=== PATIENT | male | born 1940 | race Hispanic/Latino ===

== ENCOUNTER → 2016-07-04 | Outpatient (CLI) | payer MEDICARE, BC | END | disposition home or self-care (01) | LOC: GMAL 11:15 | PROVIDERS: ATTEND Family Medicine | DX: E55.9 Vitamin D deficiency, unspecified (principal) ==

== ENCOUNTER → 2016-07-10 | Outpatient (CLI) | payer MEDICARE, BC ==
--- NOTE | 2016-07-10 10:47 | CT ---
EXAM DESCRIPTION: Abdoment/Pelvis w/o Contrast CLINICAL HISTORY: 75 years,Male,ABD PAIN COMPARISON: October 31, 2014 TECHNIQUE: Multiple axial helical tomographic images were obtained of the abdomen and pelvis with out IV or oral contrast and then reconstructed sagittal coronal plane FINDINGS: The unenhanced liver is unremarkable. The spleen is unremarkable. There is a small splenule near the anterior tip. The Pancreas is unremarkable. The adrenal glands are unremarkable. There are no stones seen in the urinary collection system. The kidneys on the left demonstrate. 3.1 cm simple cyst stable since April 2011 The gallbladder is unremarkable. No free air free fluid masses or adenopathy. The included bowel numerous diverticuli in the sigmoid and descending colon The lung bases demonstrate a small nodule lateral right anterior lung field measuring 4 mm. This is stable since at least May 09, 2011. The surrounding soft tissues are unremarkable. The bony elements age appropriate . Mild cardiomegaly with pacer leads partially occluded exam IMPRESSION: No acute findings. There is a's simple cyst left kidney, a small benign-appearing stable nodule in anterior right lung base, and numerous uncomplicated diverticuli of the descending and sigmoid colon and no significant changes. Electronically signed by: Stuart Lofton MD 07/10/2016 10:47 AM CDT
== END | disposition home or self-care (01) ==
LOC: CT 07:06
PROVIDERS: ATTEND Family Medicine
DX: R10.84 Generalized abdominal pain (principal)

== ENCOUNTER → 2016-07-12 | Outpatient (CLI) | payer MEDICARE | END | disposition home or self-care (01) | LOC: LAB.O 16:54 | PROVIDERS: ATTEND Family Medicine | DX: R94.5 Abnormal results of liver function studies (principal); D53.9 Nutritional anemia, unspecified ==

== ENCOUNTER → 2016-07-19 | Outpatient (CLI) | payer MEDICARE, BC ==
--- NOTE | 2016-07-19 11:56 | US ---
EXAM DESCRIPTION: Liver CLINICAL HISTORY: 75 years,Male,RUQ PAIN COMPARISON: None TECHNIQUE: Multiple real-time sonographic images were obtained of the right upper quadrant. FINDINGS: The liver demonstrates normal echotexture. No masses. No cysts. It measures 17.8 cm in craniocaudal length. Gallbladder demonstrates anechoic lumen. There is no intrahepatic biliary ductal dilatation. The gallbladder wall thickness is unremarkable. No pericholecystic fluid. The common bile duct measures 2.5 mm in diameter. Right kidney not demonstrated. The pancreas visualized portions of the head and body are not seen well. No free fluid in the right upper quadrant. IMPRESSION: Unremarkable ultrasound of the right upper quadrant. Electronically signed by: Stuart Lofton MD 07/19/2016 11:55 AM CDT
== END ==
LOC: US 07:38
PROVIDERS: ATTEND Family Medicine
DX: R10.84 Generalized abdominal pain (principal); R94.5 Abnormal results of liver function studies

== ENCOUNTER → 2016-07-25 | Outpatient (CLI) | payer MEDICARE | LOC: LAB.O 16:07 | PROVIDERS: ATTEND Family Medicine | DX: B18.2 Chronic viral hepatitis C (principal) ==

== ENCOUNTER → 2016-08-29 | Outpatient (CLI) | payer MEDICARE | END | disposition home or self-care (01) | LOC: LAB.O 13:59 | PROVIDERS: ATTEND Internal Medicine Gastroenterology | DX: B18.2 Chronic viral hepatitis C (principal) ==

== ENCOUNTER → 2016-10-04 | Outpatient (CLI) | payer MEDICARE ==
--- NOTE | 2016-10-04 18:33 | CT ---
PROCEDURE: Head HISTORY: DIZZINESS. R42 Indication: Same as above Comparison: 07/11/2009. Technique: CT of the head was done without intravenous contrast was done in axial plane only This exam was performed according to our departmental dose-optimization program, which includes automated exposure control, adjustment of the mA and/or KV according to the patient's size and/or use of iterative reconstruction technique. FINDINGS: There is no intracranial hemorrhage, midline shift mass effect or acute focal infarct. There is mild prominence of the sylvian fissures and the cortical sulci reflecting age related volume loss. There is minimal periventricular and deep white matter low attenuation, most likely related to small vessel white matter ischemic disease. Intracranial vascular calcifications are seen. If clinical concern exists regarding an acute ischemic/vascular pathology being responsible for patient's symptomatology, an MRI of the brain is more sensitive than the current study, in ruling out such a possibility. There is good jimenez/white matter differentiation. The ventricular system is normal. The mastoid air cells are unremarkable . The paranasal sinuses are unremarkable . There is no visualization of acute fractures involving the calvarium or the skull base. IMPRESSION: There is no acute intracranial abnormality Electronically signed by: Ryan Jung MD 10/04/2016 6:33 PM CDT Workstation: [id number]
== END | disposition home or self-care (01) ==
LOC: LAB.O 17:54
PROVIDERS: ATTEND Nurse Practitioner Family
DX: R42 Dizziness and giddiness (principal)

== ENCOUNTER → 2016-11-14 | Outpatient (CLI) | payer MEDICARE | END | disposition home or self-care (01) | LOC: LAB.O 11:37 | PROVIDERS: ATTEND Internal Medicine Gastroenterology | DX: B18.2 Chronic viral hepatitis C (principal) ==

== ENCOUNTER → 2016-11-28 | Outpatient (CLI) | payer MEDICARE | END | disposition home or self-care (01) | LOC: LAB.O 16:53 | PROVIDERS: ATTEND Internal Medicine Gastroenterology | DX: B18.2 Chronic viral hepatitis C (principal) ==

== ENCOUNTER → 2016-12-26 | Outpatient (CLI) | payer MEDICARE | END | disposition home or self-care (01) | LOC: LAB.O 16:57 | PROVIDERS: ATTEND Internal Medicine Gastroenterology | DX: B18.2 Chronic viral hepatitis C (principal) ==

== ENCOUNTER → 2017-01-23 | Outpatient (CLI) | payer MEDICARE | END | disposition home or self-care (01) | LOC: LAB.O 17:14 | PROVIDERS: ATTEND Internal Medicine Gastroenterology | DX: B18.2 Chronic viral hepatitis C (principal) ==

== ENCOUNTER → 2017-02-06 | Outpatient (CLI) | payer MEDICARE | END | disposition home or self-care (01) | LOC: GMAL 10:27 | PROVIDERS: ATTEND Family Medicine | DX: D51.3 Other dietary vitamin B12 deficiency anemia (principal); Z12.5 Encounter for screening for malignant neoplasm of prostate | CPT/HCPCS: 82607; G0103 ==

== ENCOUNTER → 2017-05-09 | Outpatient (CLI) | payer MEDICARE ==
--- NOTE | 2017-05-12 00:14 | US ---
Procedure: US RETROPERITONEUM Exam Date: 05/09/2017 Ordering Provider: Gemini Martinez Clinical Indication: Flank pain Comparison: 07/10/2016 CT abdomen pelvis Technique: Real-time ultrasonography was obtained over the kidneys and brewery representative images were recorded. Findings: The right kidney measures 9.0 x 4.9 x 6.0 cm . There is normal renal cortical thickness and echogenicity. There are no masses, calculi, or hydronephrosis. The left kidney measures 10.9 x 6.3 x 5.7 cm . There is normal renal cortical thickness and echogenicity. There are no masses, calculi, or hydronephrosis. There is a 3.6 cm cyst. The visualized aorta is within normal limits. Impression: 1. Left renal cyst, otherwise unremarkable exam. Electronically signed by: David Will MD 05/12/2017 12:13 AM WELLNESS COORDINATOR
== END ==
LOC: US 08:15
PROVIDERS: ATTEND Nurse Practitioner Family
DX: N23 Unspecified renal colic (principal); N28.1 Cyst of kidney, acquired

== ENCOUNTER 2017-06-29 09:29 | Emergency (ER) | payer MEDICARE ==
--- NOTE | 2017-06-29 09:54 | ED.PDOC ---
History of Present Illness - General Chief Complaint: Abdominal Pain Stated Complaint: abdominal pain Time Seen by Provider: 06/29/17 09:51 Information Source: patient, RN notes reviewed Exam Limitations: no limitations Additional Information: 76 YEAR OLD MALE PRESENTS WITH UPPER ABDOMINAL PAIN FOR 10 DAYS AGGRAVATED BY WATER AND TODAY HE HAD ONE EPISODE OF DARK STOOLS HE HAD NO ASSOCIATED DIZZINESS OR SYNCOPE HE HAS HAD EGD IN THE PAST BY DR DORMAN DIAGNOSED WITH GERD HE DENIES ALCOHOL ABUSE NO NSAIDS NO STERIODS NO PEPTOBISMOL INTAKE - History of Present Illness Abdominal Pain Onset Location: epigastric Pain Radiation: no radiation Quality: moderate Timing/Duration: 1 week Improving Factors: nothing Worsening Factors: eating Associated Symptoms: heartburn Past Medical History (General) - Patient Medical History Hx Seizures: No Hx Stroke: No Hx Dementia: No Hx Asthma: No Hx of COPD: No Hx Cardiac Disorders: Yes - Pacemaker Hx Congestive Heart Failure: Yes Hx Pacemaker: Yes Hx Hypertension: Yes Hx Thyroid Disease: No Hx Diabetes: Yes Hx Gastroesophageal Reflux: No Hx Renal Disease: No Hx Cancer: No Hx of HIV: No Hx Hepatitis C: No Hx MRSA: No Surgical History: other - Vaccination History Hx Tetanus, Diphtheria Vaccination: Yes - 2008 Hx Influenza Vaccination: Yes - 2016 Hx Pneumococcal Vaccination: Yes - 2015 - Social History Hx Tobacco Use: No Hx Alcohol Use: No Hx Substance Use: No Hx Substance Use Treatment: No Hx Depression: No Hx Physical Abuse: No Hx Emotional Abuse: No Hx Suspected Abuse: No Family Medical History - Family History Mother Family History: No Known Living Status: Cause of : cancer Hx Family Hypertension: Yes Hx Cardiac Disease: Yes - [place] Hx Family Cancer: Yes - colon Physical Exam - Physical Exam General Appearance: Alert Eyes, Ears, Nose, Throat Exam: PERRL/EOMI, normal ENT inspection, TMs normal, pharynx normal Neck: non-tender, full range of motion, supple Respiratory: chest non-tender, lungs clear, normal breath sounds, no respiratory distress, no accessory muscle use Cardiovascular/Chest: normal peripheral pulses, regular rate, rhythm, no edema, no gallop, no JVD, no murmur Gastrointestinal/Abdominal: normal bowel sounds, soft, no organomegaly, no pulsatile mass, tenderness Back Exam: normal inspection, no CVA tenderness 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8 Chloride 105 Carbon Dioxide 23 Anion Gap 14.8 BUN 14 Creatinine 1.12 BUN/Creatinine Ratio 12.5 Random Glucose 142 H Serum Osmolality 280.4 Calcium 9.4 Total Bilirubin 1.3 H AST 29 ALT 22 Alkaline Phosphatase 43 Serum Total Protein 6.9 Albumin 4.0 Globulin 2.9 Albumin/Globulin Ratio 1.4 Departure - Departure Clinical Impression: Gastroesophageal reflux disease, History of melena Time of Disposition: 11:22 Disposition: Discharge to Home or Self Care Condition: Good Departure Forms: ED Discharge - Pt. Copy, Patient Portal Self Enrollment Instructions: DI for Abdominal Pain-Adult Activity: increase activity as tolerated Referrals: Stuart Gooden III, MD [Primary Care Provider] - 1-2 Weeks Prescriptions: Pantoprazole Tablet [Protonix] 40 mg PO ACBK #30 tab Home Medications: Ambulatory Orders Aspirin [Baby Aspirin] 81 mg PO DAILY 05/16/14 Carvedilol 12.5 mg PO BID 05/16/14 Cyanocobalamin [B-12] 1,000 mcg PO DAILY 05/16/14 Donepezil HCl [Aricept] 10 mg PO DAILY 05/16/14 Irbesartan [Avapro] 75 mg PO BID 05/16/14 Memantine HCl [Namenda] 10 mg PO BID 05/16/14 Metformin HCl 500 mg PO BID 05/16/14 Multiple Vitamins W/ Minerals [Centrum Silver] 1 tab PO DAILY 05/16/14 Pravastatin Sodium 40 mg PO DAILY 05/16/14 Spironolactone 25 mg PO DAILY 05/16/14 Tamsulosin [Flomax] 0.4 mg PO DAILY 05/16/14 Oxybutynin Chloride 5 mg PO BID 12/26/14 Pantoprazole Tablet [Protonix] 40 mg PO ACBK #30 tab 06/29/17 Comments: NO EVIDENCE OF SIGNIFICANT GI BLEED CT ABD WITHOUT CONTRAST DONE THE PATIENT HAS IODINE ALLERGY THAT IS WITHIN NORMAL LIMITS NO ACUTE FINDINGS ASYMPTOMATIC DIVERTICULA AND ENLARGED PROSTATE POSSIBLE HEPATIC CYST NOTED SINCE THE PATIENT HAS HISTORY OF GERD WILL START HIM ON PROTON PUMP INHIBITOR AND SUGGEST HE FOLLOW UP WITH PCP AND AUDIO VISUAL AIDS DIRECTOR
--- NOTE | 2017-06-29 10:53 | CT ---
Procedure: CT ABDOMEN PELVIS WITHOUT IV CONTRAST Exam Date: 06/29/2017 9:57 AM CDT Ordering Provider: Alvarado Morrow Clinical Indication: ABD PAIN Comparison: None TECHNIQUE: CT of the abdomen and pelvis WITHOUT intravenous contrast. The abdomen and pelvis were scanned utilizing a multidetector helical scanner from the diaphragm to the lesser trochanter. Coronal and sagittal reformations were obtained. This exam was performed according to our departmental dose-optimization program which includes automated exposure control, adjustment of the mA and/or kV according to patient size and/or use of iterative reconstruction technique. DISCUSSION: ABSENCE OF INTRAVENOUS CONTRAST DECREASES SENSITIVITY FOR DETECTION OF FOCAL LESIONS AND VASCULAR PATHOLOGY. LOWER THORAX: Normal. HEPATOBILIARY: Subcentimeter low-density focus in the left hepatic lobe and the periphery of the right hepatic lobe, statistically a cyst. Faint pericholecystic fluid is present. No radiopaque gallstone is present. SPLEEN: No splenomegaly. PANCREAS: No focal masses or ductal dilatation. ADRENALS: No adrenal nodules. KIDNEYS/URETERS: No hydronephrosis, stones, or solid mass lesions. Simple appearing cysts are seen in bilateral kidneys. PELVIC ORGANS/BLADDER: There is enlarged appearance of the prostate gland. Visualized bladder is unremarkable. PERITONEUM / RETROPERITONEUM: No free air or fluid. LYMPH NODES: No lymphadenopathy. VESSELS: Vascular calcifications are seen in the abdominal aorta. No aneurysmal dilatation. GI TRACT: The stomach and small bowel are unremarkable. There is extensive relatively diffuse colonic diverticulosis. No evidence of diverticulitis. BONES AND SOFT TISSUES: Multilevel degenerative changes are seen within the lumbar spine. IMPRESSION: Colonic diverticulosis without diverticulitis. Faint pericholecystic fluid. No obvious radiopaque gallstone is present. Consider further assessment with right upper quadrant ultrasound if there is high clinical concern. Other nonemergent findings, as described. Electronically signed by: Rachael Monteiro MD 06/29/2017 10:52 AM CDT
[2017-06-29 12:08] VITALS: BP 126/74; TEMP 96.9; O2SAT 97
== END 2017-06-29 11:40 | disposition home or self-care (01) ==
LOC: ER 09:29
DX: K21.9 Gastro-esophageal reflux disease without esophagitis (principal); I11.0 Hypertensive heart disease with heart failure; I50.9 Heart failure, unspecified; E11.9 Type 2 diabetes mellitus without complications; K57.90 Diverticulosis of intestine, part unspecified, without perforation or abscess without bleeding; N40.0 Benign prostatic hyperplasia without lower urinary tract symptoms; Z95.0 Presence of cardiac pacemaker; Z87.19 Personal history of other diseases of the digestive system; Z79.84 Long term (current) use of oral hypoglycemic drugs

== ENCOUNTER 2017-08-02 19:22 | Emergency (ER) | payer MEDICARE ==
--- NOTE | 2017-08-02 20:11 | RAD ---
EXAM DESCRIPTION: Chest,2 Views CLINICAL HISTORY:76 years Male, difficulty eating/swallowing Comparison: September 01, 2015 FINDINGS: Enlarged cardiac silhouette with mild vascular congestion, more prominent than prior. No focal lung consolidation. Left sided cardiac device. Atherosclerotic vascular calcifications. No pleural effusion. No pneumothorax. No acute osseous abnormality. Soft tissues are unremarkable. IMPRESSION: Enlarged cardiac silhouette with mild vascular congestion, slightly more prominent than prior. No focal lung consolidation. Electronically signed by: Rick Tesfaye MD 08/02/2017 8:10 PM CDT
[2017-08-02 21:17] VITALS: O2SAT 97
--- NOTE | 2017-08-02 21:20 | ED.PDOC ---
History of Present Illness - General Chief Complaint: GI Problem Stated Complaint: decreased appetite, Time Seen by Provider: 08/02/17 19:32 Source: patient Exam Limitations: no limitations - History of Present Illness Initial Comments: the patient is a 76-year-old male presenting to the emergency room secondary to a month of progressive symptoms. The patient reports that his appetite has been poor for the last month and he has been having early satiety but has only been worsening for the last month. At times he has been nauseated but has not thrown up. He is apparently already scheduled for an EGD with Dr. Coon in [place]. This was scheduled be done this coming Saturday. He has a known hiatal hernia on CT scan of his abdomen from last month. The patient also has a significant history of congestive heart failure and just had his pacemaker redone with Dr. Montenegro in [facility] 3 weeks ago. His installer technician is Dr. Wilcox. The patient is not having any swelling in his lungs are clear. He is however getting short of breath with as little as 10 paces of walking. His chest x-ray tonight does show some increased cardiomegaly. He is not having abdominal pain. He has been taking his medicationsregularly even in spite of his weight changes. he reports that he has gotten dizzy and almost passed out on at least 2 occasions. Timing/Duration: unsure Severity: moderate Improving Factors: rest Worsening Factors: nothing Associated Symptoms: loss of appetite, malaise, nausea/vomiting, shortness of breath, weakness Allergies/Adverse Reactions: Allergies Iodine Allergy (Verified 06/29/17 09:47) IV dye Allergy (Uncoded 09/01/15 18:02) Home Medications: Ambulatory Orders Aspirin [Baby Aspirin] 81 mg PO DAILY 05/16/14 Carvedilol 12.5 mg PO BID 05/16/14 Cyanocobalamin [B-12] 1,000 mcg PO DAILY 05/16/14 Donepezil HCl [Aricept] 10 mg PO DAILY 05/16/14 Irbesartan [Avapro] 75 mg PO BID 05/16/14 Memantine HCl [Namenda] 10 mg PO BID 05/16/14 Metformin HCl 500 mg PO BID 05/16/14 Multiple Vitamins W/ Minerals [Centrum Silver] 1 tab PO DAILY 05/16/14 Pravastatin Sodium 40 mg PO DAILY 05/16/14 Spironolactone 25 mg PO DAILY 05/16/14 Tamsulosin [Flomax] 0.4 mg PO DAILY 05/16/14 Oxybutynin Chloride 5 mg PO BID 12/26/14 Pantoprazole Tablet [Protonix] 40 mg PO ACBK #30 tab 06/29/17 Review of Systems - Review of Systems Constitutional: States: malaise, weakness EENTM: States: no symptoms reported Respiratory: States: short of breath - ith activity mainly Cardiology: States: no symptoms reported Gastrointestinal/Abdominal: States: nausea. Denies: constipation, diarrhea, vomiting Genitourinary: States: no symptoms reported Musculoskeletal: States: no symptoms reported Skin: States: no symptoms reported Neurological: States: other - izziness and generalized weakness Endocrine: States: no symptoms reported All other Systems: No Change from Baseline Past Medical History (General) - Patient Medical History Hx Seizures: No Hx Stroke: No Hx Dementia: No Hx Asthma: No Hx of COPD: No Hx Cardiac Disorders: Yes - Pacemaker Hx Congestive Heart Failure: No Hx Pacemaker: Yes Hx Hypertension: Yes Hx Thyroid Disease: No Hx Diabetes: Yes Hx Gastroesophageal Reflux: No Hx Renal Disease: No Hx Cancer: No Hx of HIV: No Hx Hepatitis C: No Hx MRSA: No Surgical History: pacemaker, other - Vaccination History Hx Tetanus, Diphtheria Vaccination: No Hx Influenza Vaccination: No Hx Pneumococcal Vaccination: Yes - 2016 - Social History Hx Tobacco Use: No Hx Alcohol Use: No Hx Substance Use: No Hx Substance Use Treatment: No Hx Depression: No Hx Physical Abuse: No Hx Emotional Abuse: No Hx Suspected Abuse: No - Triage Comment ED Triage Comment: pt reports he has ascope scheduled for next saturday. Family Medical History - Family History Mother Family History: No Known Living Status: Cause of : cancer Hx Family Hypertension: Yes Hx Cardiac Disease: Yes - [place] Hx Family Cancer: Yes - colon Physical Exam - Physical Exam General Appearance: Alert, No apparent distress Eye Exam: bilateral normal Ears, Nose, Throat: hearing grossly normal, normal ENT inspection, normal pharynx Neck: full range of motion, supple Respiratory: lungs clear, normal breath sounds, no respiratory distress, no accessory muscle use Cardiovascular/Chest: normal peripheral pulses, no edema, other - egular rate Peripheral Pulses: radial,right: 2+, radial,left: 2+, dorsalis pedis,right: 2+, dorsalis pedis,left: 2+ Gastrointestinal/Abdominal: non tender, soft Rectal Exam: deferred Back Exam: normal inspection, no CVA tenderness Extremity: normal range of motion, non-tender, no pedal edema, normal capillary refill 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, alert, normal mood/affect, oriented x 3 Skin Exam: normal color Comments: Vital Signs - 24 hr 08/02/17 08/02/17 08/02/17 19:44 19:46 19:47 Temperature 98.7 F 98.7 F 98.7 F Pulse Rate [ 80 80 80 left] Respiratory 20 20 20 Rate Blood Pressure 125/78 118/69 118/69 [left] O2 Sat by Pulse 98 Oximetry 08/02/17 08/02/17 19:50 21:05 Temperature 98.7 F 98.7 F Pulse Rate [ 81 80 left] Respiratory 20 20 Rate Blood Pressure 123/76 117/76 [left] O2 Sat by Pulse 97 Oximetry Progress - Progress Progress: 08/02/17 21:22 the patient is a 76-year-old male presenting to the emergency room secondary to progressive symptoms of early satiety as well as increasing generalized weakness and dyspnea on exertion over the last month. The patient reports a 25 pound weight loss over the last month. I'm uncertain how much of the symptoms are coming from his upper gastrointestinal tract versus his congestive heart failure. The patient is being transferred for an expedited gastrointestinal evaluation as well as further cardiac reevaluation preferably including an echocardiogram to determine if there is significant change in his cardiac function for some reason that needs further addressing. upon insistence by the patient and his family the patient will be allowed to go to [facility] by private vehicle. At this point his vital signs have been stable at rest and he is not requiring any supplemental oxygen or IV medications , so his risk for transfer in a private vehicle should be low. He is to proceed immediately to [facility] for further evaluation and treatment. He has agreed to this. - Results/Orders Results/Orders: Abnormal Lab Results 08/02/17 08/02/17 19:57 19:57 MCH 31.3 H Absolute Lymphs (auto) 0.80 L Lymphocytes % 12.6 L Monocytes % 9.6 H Anion Gap 11.1 L BUN 24 H Random Glucose 169 H B-Natriuretic Peptide 1650.0 H* 08/02/17 19:46 Vital Signs-Tilt PRN 08/02/17 20:30 EKG STAT Laboratory Results - last 24 hr 08/02/17 08/02/17 19:57 19:57 WBC 6.4 RBC 4.76 Hgb 14.9 Hct 44.4 MCV 93.2 MCH 31.3 H MCHC 33.6 RDW 13.8 Plt Count 159 MPV 8.6 Absolute Neuts (auto) 4.70 Absolute Lymphs (auto) 0.80 L Absolute Monos (auto) 0.60 Absolute Eos (auto) 0.20 Absolute Basos (auto) 0.10 Neutrophils % 73.8 Lymphocytes % 12.6 L Monocytes % 9.6 H Eosinophils % 3.0 Basophils % 1.0 Sodium 138 Potassium 4.1 Chloride 103 Carbon Dioxide 28 Anion Gap 11.1 L BUN 24 H Creatinine 1.24 BUN/Creatinine Ratio 19.4 Random Glucose 169 H Serum Osmolality 283.6 Calcium 9.0 Magnesium 1.8 Total Bilirubin 0.4 AST 38 ALT 28 Alkaline Phosphatase 89 Creatine Kinase 102 CK-MB (CK-2) 2.1 CK-MB (CK-2) % Not Reportable Troponin I 0.02 B-Natriuretic Peptide 1650.0 H* Serum Total Protein 7.1 Albumin 3.7 Globulin 3.4 Albumin/Globulin Ratio 1.1 Amylase 71 TSH 2.71 chest x-ray shows worsening cardiomegaly. EKG shows a paced rhythm at 80 bpm. Departure - Departure Clinical Impression: Abnormal weight loss, Early satiety CHF exacerbation Qualifiers: Congestive heart failure type: combined Qualified Code(s): I50.43 - Acute on chronic combined systolic (congestive) and diastolic (congestive) heart failure Disposition: Transfer to Hospital Referrals: Stuart Gooden III, MD [Primary Care Provider] - 1-2 Weeks Home Medications: Ambulatory Orders Aspirin [Baby Aspirin] 81 mg PO DAILY 05/16/14 Carvedilol 12.5 mg PO BID 05/16/14 Cyanocobalamin [B-12] 1,000 mcg PO DAILY 05/16/14 Donepezil HCl [Aricept] 10 mg PO DAILY 05/16/14 Irbesartan [Avapro] 75 mg PO BID 05/16/14 Memantine HCl [Namenda] 10 mg PO BID 05/16/14 Metformin HCl 500 mg PO BID 05/16/14 Multiple Vitamins W/ Minerals [Centrum Silver] 1 tab PO DAILY 05/16/14 Pravastatin Sodium 40 mg PO DAILY 05/16/14 Spironolactone 25 mg PO DAILY 05/16/14 Tamsulosin [Flomax] 0.4 mg PO DAILY 05/16/14 Oxybutynin Chloride 5 mg PO BID 12/26/14 Pantoprazole Tablet [Protonix] 40 mg PO ACBK #30 tab 06/29/17 Transfer to Outside Facility - Transfer Information Accepting Provider:: dr hardwick Accepting Facility: [facility] Reason for Transfer: required specialist not available
[2017-08-02 21:38] VITALS: BP 119/76; TEMP 98
== END 2017-08-02 21:38 | disposition short-term general hospital (02) ==
LOC: ER 19:22
DX: R68.81 Early satiety (principal); R63.4 Abnormal weight loss; I11.0 Hypertensive heart disease with heart failure; I50.43 Acute on chronic combined systolic (congestive) and diastolic (congestive) heart failure; E11.9 Type 2 diabetes mellitus without complications; Z95.0 Presence of cardiac pacemaker; Z79.82 Long term (current) use of aspirin; Z79.899 Other long term (current) drug therapy

== ENCOUNTER → 2017-08-21 | Outpatient (CLI) | payer MEDICARE ==
--- NOTE | 2017-08-21 15:32 | CT ---
EXAM DESCRIPTION: Chest w/o Contrast CLINICAL HISTORY: 76 years, Male, ABNORMAL CHEST X RAY COMPARISON: Recent chest x-ray August 02, 2017, CT abdomen June 29, 2017 TECHNIQUE: Thin-section noncontrast axial CT images are obtained according to our protocol. Reconstructed MPR images are created and reviewed as well. FINDINGS: Lungs: Focal consolidation is seen in the inferior lingula which could be acute or chronic. Pneumonic infiltrate is favored over a malignant process since this is triangular in shape. On the sagittal images this measures 1.5 x 3.2 cm. On the axial images, this abnormal density measures approximately 1.8 x 1.6 cm. Coronal measurement is 1.4 x 1.9 cm. This could be followed to ensure complete clearance. If patient has symptoms to suggest pneumonia, chest x-ray might be considered to see if the density could be followed with chest x-ray. Otherwise a follow-up CT to ensure resolution or stability might be considered in 3-[address] images of the lower chest as part of the CT abdomen June 29, 2017, no paracardiac density was seen at that time in the lower lingula suggesting new onset of focal atelectasis or pneumonia. No central obstructing lesion. Minimal internal air bronchograms are present. Tiny nodule in the right middle lobe measures 3 mm. Another tiny nodule more inferiorly in the right middle lobe measures [address] recommendations for follow-up below. Otherwise no worrisome pulmonary mass or nodule. Mediastinum: Lymph nodes are normal in size. Normal vascular contours. Heart size is increased with cardiac pacer in place and with no pericardial effusion. Chest wall/axilla: No mass or adenopathy. Epicardial pacer leads are seen traversing the anterior left chest wall. Lower neck/supraclavicular: No mass or adenopathy. Thyroid is small. Upper abdomen: Tiny cysts in the right and left lobes of the liver measure 5 mm and 6 mm. A third cyst in the lower right lobe behind the liver hilum measures 1.1 cm. Question mild inflammatory changes around the mid left kidney. Correlate with other studies. Small accessory splenule is present. Otherwise unremarkable upper abdominal viscera. Coronal and sagittal reformatted images confirm the findings. IMPRESSION: Focal consolidation within the inferior segment of the lingula. Follow-up is recommended in 3-6 months to ensure stability or resolution. 3 mm nodules in the right middle lobe. Follow-up as per Fleischner Society criteria-see below. Small hepatic lesions most consistent with cysts. 2017 Fleischner Society Recommendations for Multiple Solid Lung Nodules Follow-Up base on size (average of long- and short-axis diameters). Use most suspicious nodule for followup. Nodule Size <6 mm Low-Risk Patient: No routine follow-up Nodule Size <6 mm High-Risk Patient: Optional CT at 12 months This exam was performed according to our departmental dose-optimization program, which includes automated exposure control, adjustment of the mA and/or kV according to patient size and/or use of iterative reconstruction technique. Total DLP equals 675.21 mGycm. Electronically signed by: Modesto Bah MD 08/21/2017 3:30 PM CDT
== END ==
LOC: CT 11:00
PROVIDERS: ATTEND Family Medicine
DX: R91.1 Solitary pulmonary nodule (principal); R30.0 Dysuria

== ENCOUNTER → 2017-09-26 | Outpatient (CLI) | payer MEDICARE | LOC: GMAL 17:58 | PROVIDERS: ATTEND Family Medicine | DX: M79.7 Fibromyalgia (principal); R53.83 Other fatigue ==

== ENCOUNTER → 2017-11-01 | Outpatient (CLI) | payer MEDICARE | LOC: LAB.O 11:24 | PROVIDERS: ATTEND Internal Medicine Gastroenterology | DX: R10.13 Epigastric pain (principal) ==

== ENCOUNTER → 2018-03-10 | Outpatient (CLI) | payer MEDICARE | LOC: GMAL 11:48 | PROVIDERS: ATTEND Family Medicine | DX: D51.3 Other dietary vitamin B12 deficiency anemia (principal); R53.83 Other fatigue; E55.9 Vitamin D deficiency, unspecified; Z12.5 Encounter for screening for malignant neoplasm of prostate | CPT/HCPCS: 82306; 82607; 84443; G0103 ==

== ENCOUNTER → 2018-03-14 | Outpatient (CLI) | payer MEDICARE ==
--- NOTE | 2018-03-14 09:46 | CT ---
EXAM DESCRIPTION: Soft Tissue Neck w/Contrast CLINICAL HISTORY: 77 years Male, R59.0 COMPARISON: CT C-spine 10/18/2008. TECHNIQUE: Transaxial images are obtained from skull base through thoracic inlet with intravenous contrast. Sagittal and coronal reformations were provided. This exam was performed according to our departmental dose-optimization program, which includes automated exposure control, adjustment of the mA and/or kV according to patient size and/or use of iterative reconstruction technique. FINDINGS: Larynx, supraglottic, glottic, infraglottic airways: Larynx, and the entire cervical airway are unremarkable. Nasopharynx, oropharynx, parotid glands, submandibular glands and tongue: The soft tissues of the nasopharynx and oropharynx are normal. The parotid and both submandibular glands are normal. Inherent muscles of the tongue and lingual tonsils are normal. Lymph nodes: No pathologically enlarged lymph nodes are present. Thyroid: The thyroid gland appears normal. Vascular structures: Mild atherosclerosis within the visualized aortic arch. There is mild calcified atherosclerosis within the carotid bifurcations without significant stenosis. Cervical esophagus: Normal. Musculoskeletal: No acute osseous abnormality or destructive osseous process is present. Degenerative changes of the spine. Paravertebral soft tissues unremarkable. Visualized upper thorax and mediastinum: The visualized portions of the lung apices and upper mediastinum are normal. Visualized structures of the skull base: The visualized portions of the skull base, mastoid air cells, middle ear and paranasal sinuses are normal. IMPRESSION: 1. No acute CT abnormality of the neck. No pathologically enlarged lymph nodes. Electronically signed by: Balwinder Valdez MD 03/14/2018 9:45 AM INDUSTRIAL SAF[employer]Y AND HEALTH SPECIALIST
== END ==
LOC: CT 09:00
PROVIDERS: ATTEND Family Medicine
DX: R59.0 Localized enlarged lymph nodes (principal)

== ENCOUNTER → 2018-06-30 | Outpatient (CLI) | payer MEDICARE | LOC: GMATM 16:48 | PROVIDERS: ATTEND Nurse Practitioner Family | DX: R10.84 Generalized abdominal pain (principal) ==

== ENCOUNTER 2018-07-01 20:31 | Emergency (ER) | payer MEDICARE ==
[2018-07-01] MEDS ORDERED: NITROGLYCERIN 0.4 MG 25 EA TAB SL PRN (20:41)
[2018-07-01] MEDS ORDERED: SODIUM CHLORIDE 0.9% (FLUSH) 10 ML SYG IV PRN (20:41)
[2018-07-01] MEDS: ASPIRIN (CHEWABLE) 81 MG TAB PO ONE (21:06)
[2018-07-01] MEDS ORDERED: LIDOCAINE HCL 2% (MOUTH-THROAT) 15 ML UD ONE (21:06)
[2018-07-01] MEDS: ALUM & MAG HYDROX-SIMETHICONE 30 ML, LIDOCAINE VISCOUS 2% 15 ML PO ONE ×2 (21:06)
[2018-07-01] MEDS ORDERED: ALUM & MAG HYDROX-SIMETHICONE 30 ML UD ONE (21:06)
--- NOTE | 2018-07-01 21:16 | RAD ---
EXAM DESCRIPTION: Chest,1 View CLINICAL HISTORY: 77 years Male CP X 5 D COMPARISON: 08/02/2017 FINDINGS: Marked cardiac enlargement. There is central pulmonary vascular congestion and pulmonary infiltrates consistent with pulmonary edema. Infiltrates appear worse in the lower lobes. Suspect bilateral effusions. Pacemaker in place. No pneumothorax. IMPRESSION: Cardiac enlargement with central pulmonary vascular congestion and pulmonary infiltrates worse in the lung bases. Findings may reflect pulmonary edema Small bilateral effusions Electronically signed by: Joy Chan MD 07/01/2018 9:13 PM CDT
--- NOTE | 2018-07-01 22:37 | ED.PDOC ---
History of Present Illness - General Chief Complaint: GI Problem Stated Complaint: short of breath, chest discomfort Time Seen by Provider: 07/01/18 20:40 Source: patient Exam Limitations: no limitations - History of Present Illness Initial Comments: 4 D DYSPNEA W/ EXERTION AND CP. H/O GERD FOR WHICH HE TAKES DAILY NEXIUM. Timing/Duration: getting worse Severity: severe Improving Factors: immobilization Worsening Factors: movement Associated Symptoms: chest pain, shortness of breath Allergies/Adverse Reactions: Allergies Iodine Allergy (Verified 07/01/18 22:35) IV dye Allergy (Uncoded 09/01/15 18:02) Home Medications: Ambulatory Orders Aspirin [Baby Aspirin] 81 mg PO DAILY 05/16/14 Carvedilol 12.5 mg PO BID 05/16/14 Cyanocobalamin [B-12] 1,000 mcg PO DAILY 05/16/14 Donepezil HCl [Aricept] 10 mg PO DAILY 05/16/14 Irbesartan [Avapro] 75 mg PO BID 05/16/14 Memantine HCl [Namenda] 10 mg PO BID 05/16/14 Metformin HCl 500 mg PO BID 05/16/14 Multiple Vitamins W/ Minerals [Centrum Silver] 1 tab PO DAILY 05/16/14 Pravastatin Sodium 40 mg PO DAILY 05/16/14 Spironolactone 25 mg PO DAILY 05/16/14 Tamsulosin [Flomax] 0.4 mg PO DAILY 05/16/14 Oxybutynin Chloride 5 mg PO BID 12/26/14 Pantoprazole Tablet [Protonix] 40 mg PO ACBK #30 tab 06/29/17 Review of Systems - Review of Systems Constitutional: Denies: diaphoresis, fever EENTM: States: no symptoms reported Respiratory: States: short of breath. Denies: cough, wheezing Cardiology: States: chest pain. Denies: edema, palpitations Gastrointestinal/Abdominal: States: other - EPIGASTRIC PAIN. Denies: constipation, diarrhea, nausea Genitourinary: Denies: dysuria, frequency, hematuria Musculoskeletal: Denies: back pain, neck pain Skin: Denies: lesions, rash Neurological: Denies: headache, tremors, weakness Endocrine: Denies: excessive sweating, unexplained weight gain, unexplained weight loss Hematologic/Lymphatic: Denies: easy bleeding, easy bruising All other Systems: Reviewed and Negative Past Medical History (General) - Patient Medical History Hx Seizures: No Hx Stroke: No Hx Dementia: No Hx Asthma: No Hx of COPD: No Hx Cardiac Disorders: Yes - Pacemaker Hx Congestive Heart Failure: No Hx Pacemaker: Yes Hx Hypertension: Yes Hx Thyroid Disease: No Hx Diabetes: Yes Hx Gastroesophageal Reflux: Yes - diverticulitis Hx Renal Disease: No Hx Cancer: No Hx of HIV: No Hx Hepatitis C: No Hx MRSA: No Surgical History: pacemaker - Vaccination History Hx Tetanus, Diphtheria Vaccination: No Hx Influenza Vaccination: No Hx Pneumococcal Vaccination: Yes - 2016 - Social History Hx Tobacco Use: Yes - has quit Hx Alcohol Use: No Hx Substance Use: No Hx Substance Use Treatment: No Hx Depression: No Hx Physical Abuse: No Hx Emotional Abuse: No Hx Suspected Abuse: No Family Medical History - Family History Mother Family History: No Known Living Status: Cause of : cancer Hx Family Hypertension: Yes Hx Cardiac Disease: Yes - [place] Hx Family Cancer: Yes - colon Physical Exam - Physical Exam General Appearance: Alert, No apparent distress Eye Exam: bilateral normal Ears, Nose, Throat: hearing grossly normal, normal ENT inspection Neck: non-tender, full range of motion, supple, other - MILD JVD. NO BRUIT. Respiratory: chest non-tender, lungs clear - NO CRACKLES, normal breath sounds, no respiratory distress, no accessory muscle use Cardiovascular/Chest: normal peripheral pulses, regular rate, rhythm, no murmur Peripheral Pulses: radial,right: 1+, radial,left: 1+ Gastrointestinal/Abdominal: normal bowel sounds, soft, no organomegaly, no pulsatile mass, tenderness - MILDLY TTP IN EPIGASTRIC/XIPHOID PROCESS. Rectal Exam: deferred Back Exam: no CVA tenderness, no vertebral tenderness Extremity: non-tender, normal inspection, no pedal edema, no calf tenderness Neurologic: no motor/sensory deficits, alert, normal mood/affect Skin Exam: normal color, warm/dry Lymphatic: no adenopathy Progress - Progress Progress: 07/01/18 22:46 GI COCKTAIL DID NOT HELP THE EPIGASTRIC DISCOMFORT. BNP 2690 CXR CARDIOMEGALY, PULM EDEMA (CHF), PLEURAL EFFUSIONS. EKG WIDE QRS FROM PACEMAKER. NO ACUTE ST CHANGES. CARD ENZ NEG. CBC NEB. CMP Na 133, cR ELEV AT 2.09 (BASELINE 1.09 - 1.24). BUN 31. COAG INR 1.29 WITH CHF AND ARF, PT NEEDS ADMISSION. PT'S EXCHANGE ARCHITECT, DR LOVETT, IS IN [place] WITH HIS AND DAUGHTER. HE REQUESTS TO GO THERE. I SPOKE WITH DR. CHANCE, WHO ACCEPTED ADMISSION TO THE CARDIAC FLOOR. THANK YOU, AND URS, FOR ACCEPTING FURTHER CARE OF OUR PATIENT. Departure - Departure Clinical Impression: Elevated brain natriuretic peptide (BNP) level, CAPONE (dyspnea on exertion), Cardiomegaly, Pleural effusion, Hyponatremia CHF (congestive heart failure) Qualifiers: Heart failure type: unspecified Heart failure chronicity: acute Qualified Code(s): I50.9 - Heart failure, unspecified Chest pain Qualifiers: Chest pain type: unspecified Qualified Code(s): R07.9 - Chest pain, unspecified Pulmonary edema Qualifiers: Chronicity: acute Qualified Code(s): J81.0 - Acute pulmonary edema Acute renal failure (ARF) Qualifiers: Acute renal failure type: unspecified Qualified Code(s): N17.9 - Acute kidney failure, unspecified Disposition: Transfer to Hospital Condition: Fair Departure Forms: ED Discharge - Pt. Copy, Patient Portal Self Enrollment Instructions: Heart Failure, Adult (DC) Referrals: Stuart Gooden III, MD [Primary Care Provider] - 1-2 Weeks Home Medications: Ambulatory Orders Aspirin [Baby Aspirin] 81 mg PO DAILY 05/16/14 Carvedilol 12.5 mg PO BID 05/16/14 Cyanocobalamin [B-12] 1,000 mcg PO DAILY 05/16/14 Donepezil HCl [Aricept] 10 mg PO DAILY 05/16/14 Irbesartan [Avapro] 75 mg PO BID 05/16/14 Memantine HCl [Namenda] 10 mg PO BID 05/16/14 Metformin HCl 500 mg PO BID 05/16/14 Multiple Vitamins W/ Minerals [Centrum Silver] 1 tab PO DAILY 05/16/14 Pravastatin Sodium 40 mg PO DAILY 05/16/14 Spironolactone 25 mg PO DAILY 05/16/14 Tamsulosin [Flomax] 0.4 mg PO DAILY 05/16/14 Oxybutynin Chloride 5 mg PO BID 12/26/14 Pantoprazole Tablet [Protonix] 40 mg PO ACBK #30 tab 06/29/17 Transfer to Outside Facility - Transfer Information Accepting Facility: [facility] Reason for Transfer: required specialist not available
[2018-07-01 23:02] VITALS: BP 102/69; O2SAT 97
[2018-07-01 23:21] VITALS: TEMP 97
== END 2018-07-01 23:22 | disposition short-term general hospital (02) ==
LOC: ER 20:31
DX: I50.9 Heart failure, unspecified (principal); R07.9 Chest pain, unspecified; J81.0 Acute pulmonary edema; N17.9 Acute kidney failure, unspecified; R79.89 Other specified abnormal findings of blood chemistry; E87.1 Hypo-osmolality and hyponatremia; I11.0 Hypertensive heart disease with heart failure; E11.9 Type 2 diabetes mellitus without complications; K21.9 Gastro-esophageal reflux disease without esophagitis; Z95.0 Presence of cardiac pacemaker; Z87.891 Personal history of nicotine dependence; Z79.899 Other long term (current) drug therapy; Z79.84 Long term (current) use of oral hypoglycemic drugs; Z79.82 Long term (current) use of aspirin; Z91.041 Radiographic dye allergy status

== ENCOUNTER → 2018-08-08 | Outpatient (CLI) | payer MEDICARE ==
--- NOTE | 2018-08-08 15:01 | RAD ---
EXAM DESCRIPTION: Chest,2 Views CLINICAL HISTORY: SHORTNESS OF BREATH COMPARISON: Previous study July 01, 2018 TECHNIQUE: PA/lateral FINDINGS: Heart is enlarged with increased pulmonary vascularity. Cardiac pacer defibrillator is in place. No pleural effusion or pneumothorax. Lungs are clear with no consolidating infiltrate. Lateral view shows intact sternum and T-spine. IMPRESSION: Enlarged heart with increased pulmonary vascularity. Electronically signed by: Modesto Bah MD 08/08/2018 2:58 PM CDT
== END ==
LOC: LAB.O 14:20
PROVIDERS: ATTEND Nurse Practitioner Family
DX: I51.7 Cardiomegaly (principal); R10.13 Epigastric pain

== ENCOUNTER → 2018-09-19 | Outpatient (CLI) | payer MEDICARE | LOC: LAB.O 16:41 | DX: I50.9 Heart failure, unspecified (principal) ==

== ENCOUNTER → 2018-11-06 | Outpatient (CLI) | payer MEDICARE | LOC: GMATM 16:29 | PROVIDERS: ATTEND Nurse Practitioner Family | DX: R10.84 Generalized abdominal pain (principal) ==

== ENCOUNTER → 2018-11-28 | Outpatient (CLI) | payer MEDICARE ==
--- NOTE | 2018-11-28 15:20 | CT ---
EXAM DESCRIPTION: Head: Computed Tomography. CLINICAL HISTORY: Unspecified visual field defects. No headaches. COMPARISON: None. TECHNIQUE: Non-helical axial scans through the skull and brain, at 2.5 x 20 mm intervals, non-contrast. Coronal and sagittal 2.0 mm reconstructions. Total Exam DLP: 859.97 mGy-cm. This exam was performed according to our departmental dose-optimization program which includes automated exposure control, adjustment of the mA and/or kV according to patient size and/or use of iterative reconstruction technique; to reduce radiation dose to as low as reasonably achievable (ALARA). FINDINGS: No hemorrhage, no mass-effect, and no midline shift. Low-density interpreted to represent encephalomalacia in the left occipital lobe mostly white matter abutting the occipital horn of the left lateral ventricle in the parasagittal left occipital lobe and the posterior left occipital lobe. Atrophy noted in the cortical sulci and the occipital horn of the left lateral ventricle is slightly enlarged compared to the contralateral right occipital horn. Bilateral subcortical white matter low-density in the occipital horn relatively symmetric. Bilateral periventricular frontal horn white matter low-density also symmetric. No abnormal radiodense material in the brain parenchyma. Vascular calcifications posterior circulation; physiologic calcifications in the pineal gland and choroid plexus. No effacement or displacement of the ventricles, CSF spaces, or subdural spaces. Size of these spaces are consistent with patient's age with no asymmetry. No extra axial fluid collection or hemorrhage. No gross abnormalities of the bony calvarium. Included paranasal sinuses and mastoid air cells are well - aerated. IMPRESSION: 1. No hemorrhage, no mass effect, no midline shift. Region of encephalomalacia surrounded by atrophy in the left occipital lobe, evidence of old injury or infarction. No hemorrhage or mass effect. Correlate with history of prior CVA. This could be affecting vision. Symmetric white matter low-density most likely related to aging and cerebral microvascular disease in the subcortical white matter of the bilateral occipital lobes and in the periventricular white matter of the frontal lobes. No extra-axial hemorrhage or fluid, no subarachnoid hemorrhage. 2. CT scans are insensitive for detecting small CVAs in the first 24 hours after onset. Evaluation of the brain stem is also limited. If symptoms persist, consider NON-EMERGENT MRI scan of the brain with diffusion imaging. Electronically signed by: Gen Daily MD 11/28/2018 3:18 PM CDT
== END ==
LOC: CT 13:02
PROVIDERS: ATTEND Family Medicine
DX: H53.40 Unspecified visual field defects (principal); G93.89 Other specified disorders of brain

== ENCOUNTER → 2018-12-12 | Outpatient (CLI) | payer MEDICARE | LOC: US 10:31 | PROVIDERS: ATTEND Family Medicine | DX: R16.0 Hepatomegaly, not elsewhere classified (principal); K87 Disorders of gallbladder, biliary tract and pancreas in diseases classified elsewhere; R18.8 Other ascites; N28.1 Cyst of kidney, acquired ==

== ENCOUNTER 2019-01-10 19:02 | Emergency (ER) | payer MEDICARE ==
--- NOTE | 2019-01-10 19:30 | ED.PDOC ---
History of Present Illness - General Chief Complaint: Chest Pain/MD Stated Complaint: CP, SOB since this am Time Seen by Provider: 01/10/19 19:14 Source: patient, RN notes reviewed, Vital Signs reviewed, family, RN/MD Additional Information: patient presents for evaluation of shortness of breath and upper abdominal pain that has been worsening over the past few days. He states he has had some chest pain in his lower chest today as well. He notes that he has been for easily for the past few days and has not had much of an appetite today. He denies any vomiting but does endorse nausea whenever he tries to eat or drink. He denies any fevers, chills, cough, or upper extremity congestion. He is also noting bilateral lower extremity edema without pain. He states that he has been cooking since his got sick and has been eating quite a bit sandwich meat. - History of Present Illness Allergies/Adverse Reactions: Allergies Iodine Allergy (Verified 01/10/19 19:31) IV dye Allergy (Uncoded 01/10/19 19:31) Home Medications: Ambulatory Orders Carvedilol 12.5 mg PO BID 05/16/14 Cyanocobalamin [B-12] 1,000 mcg PO DAILY 05/16/14 Donepezil HCl [Aricept] 10 mg PO DAILY 05/16/14 Irbesartan [Avapro] 75 mg PO BID 05/16/14 Metformin HCl [Metformin Hydrochloride] 500 mg PO BID 05/16/14 Multiple Vitamins W/ Minerals [Centrum Silver] 1 tab PO DAILY 05/16/14 Pravastatin Sodium 40 mg PO DAILY 05/16/14 Spironolactone 25 mg PO DAILY 05/16/14 Oxybutynin Chloride 5 mg PO BID 12/26/14 Pantoprazole Tablet [Protonix] 40 mg PO ACBK #30 tab 06/29/17 Amiodarone HCl 200 mg PO DAILY 07/01/18 Apixaban [Eliquis] 5 mg PO DAILY 07/01/18 Furosemide [Lasix] 20 mg PO DAILY 07/01/18 Losartan Potassium 100 mg PO DAILY 07/01/18 Tamsulosin [Flomax] 0.4 mg PO QD 07/01/18 Review of Systems - Review of Systems Constitutional: Denies: chills, fever Respiratory: States: short of breath. Denies: cough Cardiology: States: chest pain Gastrointestinal/Abdominal: States: abdominal pain, nausea. Denies: diarrhea, vomiting Musculoskeletal: Denies: back pain Neurological: Denies: headache, numbness Past Medical History (General) - Patient Medical History Hx Seizures: No Hx Stroke: No Hx Dementia: No Hx Asthma: No Hx of COPD: No Hx Cardiac Disorders: Yes - Pacemaker Hx Congestive Heart Failure: No Hx Pacemaker: Yes Hx Hypertension: Yes Hx Thyroid Disease: No Hx Diabetes: Yes Hx Gastroesophageal Reflux: Yes - diverticulitis Hx Renal Disease: No Hx Cancer: No Hx of HIV: No Hx Hepatitis C: No Hx MRSA: No Surgical History: no surgical history - Vaccination History Hx Tetanus, Diphtheria Vaccination: No Hx Influenza Vaccination: No Hx Pneumococcal Vaccination: Yes - 2016 - Social History Hx Tobacco Use: Yes - has quit Hx Alcohol Use: No Hx Substance Use: No Hx Substance Use Treatment: No Hx Depression: No Hx Physical Abuse: No Hx Emotional Abuse: No Hx Suspected Abuse: No Family Medical History - Family History Mother Family History: No Known Living Status: Cause of : cancer Hx Family Hypertension: Yes Hx Cardiac Disease: Yes - [place] Hx Family Cancer: Yes - colon Physical Exam - Physical Exam General Appearance: Alert, Comfortable, Well Developed, Well Groomed, Well Hydrated, Well Nourished Neck: full range of motion, supple, normal inspection Respiratory: lungs clear, normal breath sounds, no respiratory distress, no accessory muscle use Cardiovascular/Chest: regular rate, rhythm, no edema, no gallop, no JVD Peripheral Pulses: radial,right: 2+, radial,left: 2+, dorsalis pedis,right: 2+, dorsalis pedis,left: 2+, posterior tibialis,right: 2+, posterior tibialis,left: 2+ Gastrointestinal/Abdominal: soft, distended, tenderness - TTP in upper abdomen Extremity: pedal edema - bilaterally 1+ to lower garcia Progress - Progress Progress: DDx: ACS, Pneumonia, PE, Constipation, SBO, esophageal malignancy, esophageal stricture, CHF exacerbation, CECY, CKD, Electrolyte derangement 01/10/19 19:32 Patient evaluated. Will add on XR of abdomen to assess for air fluid levels due to early satiety and appetite changes. 01/10/19 20:47 Patient was discussed with Dr. Flores at [facility]. he agreed with plan to accept transfer. Patient presented for evaluation of SOB and CP. He was overall well appearing and hemodynamically stable. EKG was not significant for underlying ischemic changes and troponin/CKMB were found to be negative. BNP was found to be greater than 5000 along with pulmonary edema on CXR. He was given 40mg of IV lasix. Abdominal XR was obtained to assess for signs of SBO vs. constipation given recent early satiety. This was not significant for air fluid levels. D-dimer was obtained on cardiac panel to screen for PE. This was found to be elevated. Given his kidney disease and hx of allergies to contrast dye, patient unable to have CTA. Patient will require VQ scan to rule out PE. He was comfortable with plan for transfer to [facility]. - Results/Orders Results/Orders: 01/10/19 19:13 Telemetry .ONCE EKG Stat Pulse Ox Stat Laboratory Results - last 24 hr 01/10/19 01/10/19 19:13 19:13 WBC 4.6 L RBC 4.42 L Hgb 13.5 L Hct 41.5 L MCV 94.0 MCH 30.7 MCHC 32.6 L RDW 15.0 H Plt Count 129 L MPV 9.2 Absolute Neuts (auto) 3.30 Absolute Lymphs (auto) 0.70 L Absolute Monos (auto) 0.60 Absolute Eos (auto) 0.00 Absolute Basos (auto) 0.00 Neutrophils % 71.6 Lymphocytes % 15.2 L Monocytes % 12.3 H Eosinophils % 0.1 L Basophils % 0.8 PT 13.4 H INR 1.34 H PTT (SP) 27.2 D-Dimer, Quantitative 1.99 H* Sodium 138 Potassium 5.1 H Chloride 104 Carbon Dioxide 22 Anion Gap 17.1 BUN 41 H Creatinine 2.48 H BUN/Creatinine Ratio 16.5 Random Glucose 119 H Serum Osmolality 286.9 Calcium 8.3 L Magnesium 2.6 H Total Bilirubin 1.5 H Direct Bilirubin 0.7 H Indirect Bilirubin 0.8 AST 29 ALT 10 Alkaline Phosphatase 55 Creatine Kinase 77 CK-MB (CK-2) 1.1 CK-MB (CK-2) % Not Reportable Troponin I 0.02 B-Natriuretic Peptide > 5000.0 H* Serum Total Protein 6.8 Albumin 3.7 CXR: Pulmonary edema bilaterally without pleural effusion XR Abdomen: No air fluid level or free air - EKG/XRAY/CT Comments: Ventricular paced rhythm without ST changes Departure - Departure Clinical Impression: Acute kidney injury superimposed on chronic kidney disease, Acute exacerbation of CHF (congestive heart failure), Elevated d-dimer Time of Disposition: 20:40 Disposition: Transfer to Hospital Departure Forms: ED Discharge - Pt. Copy, Patient Portal Self Enrollment Instructions: DI for Chest Pain Referrals: Stuart Gooden III, MD [Primary Care Provider] - 1-2 Weeks Home Medications: Ambulatory Orders Carvedilol 12.5 mg PO BID 05/16/14 Cyanocobalamin [B-12] 1,000 mcg PO DAILY 05/16/14 Donepezil HCl [Aricept] 10 mg PO DAILY 05/16/14 Irbesartan [Avapro] 75 mg PO BID 05/16/14 Metformin HCl [Metformin Hydrochloride] 500 mg PO BID 05/16/14 Multiple Vitamins W/ Minerals [Centrum Silver] 1 tab PO DAILY 05/16/14 Pravastatin Sodium 40 mg PO DAILY 05/16/14 Spironolactone 25 mg PO DAILY 05/16/14 Oxybutynin Chloride 5 mg PO BID 12/26/14 Pantoprazole Tablet [Protonix] 40 mg PO ACBK #30 tab 06/29/17 Amiodarone HCl 200 mg PO DAILY 07/01/18 Apixaban [Eliquis] 5 mg PO DAILY 07/01/18 Furosemide [Lasix] 20 mg PO DAILY 07/01/18 Losartan Potassium 100 mg PO DAILY 07/01/18 Tamsulosin [Flomax] 0.4 mg PO QD 07/01/18 Comments: Yunior Monteiro D.O. [facility] #[id number]
--- NOTE | 2019-01-10 20:06 | RAD ---
EXAM: Abdomen Lat/Decubitus CLINICAL INDICATION: Abdominal distention COMPARISON: 10/31/2014 FINDINGS: 2 decubitus views of the abdomen were obtained. There is a nonspecific bowel gas pattern with no radiographic evidence of bowel obstruction. There are no dilated loops of small bowel. There is no evidence of pneumoperitoneum or pathologic calcifications. IMPRESSION: No evidence of an acute intraabdominal process. Electronically signed by: Lefty Fisher MD 01/10/2019 8:05 PM CDT
--- NOTE | 2019-01-10 20:06 | RAD ---
EXAM:Chest,2 Views CLINICAL INDICATION: Chest pain COMPARISON: 08/08/2018 FINDINGS:Two views of the chest were obtained. The heart size is mildly enlarged. The pulmonary vascularity is mildly prominent. A left-sided cardiac device is noted. The lungs are clear. There is no consolidation, infiltrate, pleural effusion, or pneumothorax. IMPRESSION: Findings suggesting mild CHF. Electronically signed by: Lefty Fisher MD 01/10/2019 8:04 PM CDT
[2019-01-10] MEDS ORDERED: FUROSEMIDE INJ 40 MG/4 ML VIAL IV ONE (20:09)
[2019-01-10 20:18] VITALS: TEMP 97.3
[2019-01-10 20:45] VITALS: BP 106/72; O2SAT 98
== END 2019-01-10 21:00 | disposition short-term general hospital (02) ==
LOC: ER 19:02
DX: N17.9 Acute kidney failure, unspecified (principal); N18.9 Chronic kidney disease, unspecified; I50.9 Heart failure, unspecified; R79.89 Other specified abnormal findings of blood chemistry; R07.9 Chest pain, unspecified; R06.02 Shortness of breath; I13.0 Hypertensive heart and chronic kidney disease with heart failure and stage 1 through stage 4 chronic kidney disease, or unspecified chronic kidney disease; Z95.0 Presence of cardiac pacemaker; Z87.891 Personal history of nicotine dependence; Z79.899 Other long term (current) drug therapy; Z79.84 Long term (current) use of oral hypoglycemic drugs; Z91.041 Radiographic dye allergy status
CPT/HCPCS: 71046; 74018; 80048; 80076; 82550; 82553; 83880; 84484; 85025; 85379; 85610; 85730; 93005; 94760; J1940

== ENCOUNTER → 2019-06-23 | Outpatient (CLI) | payer MEDICARE | DX: I50.41 Acute combined systolic (congestive) and diastolic (congestive) heart failure (principal) ==

== ENCOUNTER → 2019-09-10 | Outpatient (CLI) | payer MEDICARE | LOC: BFHH 16:49 | PROVIDERS: ATTEND Family Medicine | DX: I13.0 Hypertensive heart and chronic kidney disease with heart failure and stage 1 through stage 4 chronic kidney disease, or unspecified chronic kidney disease (principal); N18.3 Chronic kidney disease, stage 3 (moderate); I50.22 Chronic systolic (congestive) heart failure ==

== ENCOUNTER → 2019-09-14 | Outpatient (CLI) | payer MEDICARE | LOC: GMAL 15:05 | PROVIDERS: ATTEND Family Medicine | DX: I13.0 Hypertensive heart and chronic kidney disease with heart failure and stage 1 through stage 4 chronic kidney disease, or unspecified chronic kidney disease (principal); N18.9 Chronic kidney disease, unspecified; I50.22 Chronic systolic (congestive) heart failure ==

== ENCOUNTER → 2019-10-19 | Outpatient (CLI) | payer MEDICARE | LOC: BFHH 14:58 | PROVIDERS: ATTEND Family Medicine | DX: I13.0 Hypertensive heart and chronic kidney disease with heart failure and stage 1 through stage 4 chronic kidney disease, or unspecified chronic kidney disease (principal); N18.3 Chronic kidney disease, stage 3 (moderate); D51.9 Vitamin B12 deficiency anemia, unspecified; I50.22 Chronic systolic (congestive) heart failure; E78.5 Hyperlipidemia, unspecified; E03.9 Hypothyroidism, unspecified; Z45.2 Encounter for adjustment and management of vascular access device ==

== ENCOUNTER → 2020-01-18 | Outpatient (CLI) | payer MEDICARE | LOC: BFHH 13:54 | PROVIDERS: ATTEND Internal Medicine Cardiovascular Disease | DX: I13.0 Hypertensive heart and chronic kidney disease with heart failure and stage 1 through stage 4 chronic kidney disease, or unspecified chronic kidney disease (principal); N18.30 Chronic kidney disease, stage 3 unspecified; I50.22 Chronic systolic (congestive) heart failure; D51.3 Other dietary vitamin B12 deficiency anemia; I48.19 Other persistent atrial fibrillation; I42.9 Cardiomyopathy, unspecified; E78.49 Other hyperlipidemia; E11.22 Type 2 diabetes mellitus with diabetic chronic kidney disease ==

== ENCOUNTER → 2020-03-31 | Outpatient (CLI) | payer MEDICARE | LOC: BFHH 14:02 | PROVIDERS: ATTEND Internal Medicine Cardiovascular Disease | DX: I50.42 Chronic combined systolic (congestive) and diastolic (congestive) heart failure (principal) ==

== ENCOUNTER 2020-04-03 12:30 | Emergency (ER) | payer MEDICARE ==
--- NOTE | 2020-04-03 13:23 | RAD ---
PROCEDURE:XR CHEST 2 VIEWS HISTORY:edema COMPARISON: January 10, 2019 FINDINGS: The heart is stable in appearance.. There are diffuse peripheral hazy patchy infiltrates which appear new from the prior examination within the right lung. There is no alveolar consolidation, effusion or pneumothorax. There are no acute bony or soft tissue abnormalities. IMPRESSION: New infiltrate seen in the periphery of the right lung which are hazy in appearance concerning for possible developing atypical pneumonia. Electronically signed by: David Garnica MD 04/03/2020 1:21 PM [facility]
--- NOTE | 2020-04-03 14:17 | ED.PDOC ---
History of Present Illness - General Chief Complaint: Cardiovascular Problem Stated Complaint: leg swelling Time Seen by Provider: 04/03/20 12:34 Source: patient Exam Limitations: no limitations - History of Present Illness Initial Comments: The patient is a 79-year-old male presented emergency room secondary to increased peripheral edema this morning. No new chest pain or increased shortness of breath. No fever. No cough. No rash. No abdominal pain. No difficulty with urination. He did take his diuretic this morning and is diuresing well. On exam the patient has +1 edema to bilateral lower extremities and lung solorio are essentially clear at this point. No respiratory distress. Blood pressures on the low normal end but that is apparently not new. The patient does have very advanced CHF and is on a milrinone infusion for the CHF. He is pleasant and cooperative in no acute distress. Timing/Duration: 4-6 hours Severity: mild Improving Factors: nothing Worsening Factors: nothing Associated Symptoms: denies symptoms Allergies/Adverse Reactions: Allergies Iodine Allergy (Verified 04/03/20 12:55) IV dye Allergy (Uncoded 04/03/20 12:55) Home Medications: Ambulatory Orders Carvedilol 12.5 mg PO BID 05/16/14 Cyanocobalamin [B-12] 1,000 mcg PO DAILY 05/16/14 Donepezil HCl [Aricept] 10 mg PO DAILY 05/16/14 Irbesartan [Avapro] 75 mg PO BID 05/16/14 Metformin HCl [Metformin Hydrochloride] 500 mg PO BID 05/16/14 Multiple Vitamins W/ Minerals [Centrum Silver] 1 tab PO DAILY 05/16/14 Pravastatin Sodium 40 mg PO DAILY 05/16/14 Spironolactone 25 mg PO DAILY 05/16/14 Oxybutynin Chloride 5 mg PO BID 12/26/14 Pantoprazole Tablet [Protonix] 40 mg PO ACBK #30 tab 06/29/17 Amiodarone HCl 200 mg PO DAILY 07/01/18 Apixaban [Eliquis] 5 mg PO DAILY 07/01/18 Furosemide [Lasix] 20 mg PO DAILY 07/01/18 Losartan Potassium 100 mg PO DAILY 07/01/18 Tamsulosin [Flomax] 0.4 mg PO QD 07/01/18 Review of Systems - Review of Systems Constitutional: States: no symptoms reported EENTM: States: no symptoms reported Respiratory: States: short of breath - With exertion mostly Cardiology: States: no symptoms reported Gastrointestinal/Abdominal: States: no symptoms reported Genitourinary: States: no symptoms reported Musculoskeletal: States: no symptoms reported Skin: States: no symptoms reported Neurological: States: no symptoms reported Endocrine: States: no symptoms reported All other Systems: No Change from Baseline Past Medical History (General) - Patient Medical History Hx Seizures: No Hx Stroke: No Hx Dementia: No Hx Asthma: No Hx of COPD: No Hx Cardiac Disorders: Yes - Pacemaker Hx Congestive Heart Failure: No Hx Pacemaker: Yes Hx Hypertension: Yes Hx Thyroid Disease: No Hx Diabetes: Yes Hx Gastroesophageal Reflux: Yes - diverticulitis Hx Renal Disease: No Hx Cancer: No Hx of HIV: No Hx Hepatitis C: No Hx MRSA: No - Vaccination History Hx Tetanus, Diphtheria Vaccination: No Hx Influenza Vaccination: Yes Hx Pneumococcal Vaccination: Yes - Social History Hx Tobacco Use: Yes - has quit Hx Alcohol Use: No Hx Substance Use: No Hx Substance Use Treatment: No Hx Depression: No Hx Physical Abuse: No Hx Emotional Abuse: No Hx Suspected Abuse: No - Activities of Daily Living Hospice Agency (if applicable):: None Family Medical History - Family History Mother Family History: No Known Living Status: Cause of : cancer Hx Family Hypertension: Yes Hx Cardiac Disease: Yes - [place] Hx Family Cancer: Yes - colon Physical Exam - Physical Exam General Appearance: Alert, Comfortable, No apparent distress Eye Exam: bilateral normal Ears, Nose, Throat: hearing grossly normal, normal pharynx Neck: full range of motion, supple Respiratory: lungs clear, normal breath sounds, no respiratory distress, no accessory muscle use Cardiovascular/Chest: normal peripheral pulses, other - Regular rate Peripheral Pulses: radial,right: 2+, radial,left: 2+ Gastrointestinal/Abdominal: non tender, soft Rectal Exam: deferred Extremity: normal range of motion, no calf tenderness, normal capillary refill, pedal edema - +1 to bilateral lower extremities 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 The patient does have very advanced congestive heart failure. I want the patient to increase his Bumex to 2 mg twice daily for at least the next 3 days. He needs to be sure that he is getting metolazone as well along with the spironolactone. No evidence of any hypoxia or respiratory distress. He can continue to follow weights and do a fluid restriction for the next few days. No evidence of other acute pathology was found. Bedside bladder ultrasound by me shows no evidence of significant urinary retention. Laboratory work does not show any significant large deviation from his baseline. He tested negative for coronavirus here today. He is to continue home medications otherwise is normal. ER warnings are given. Follow-up with primary care doctor next week. [email or web address] [id number] - Results/Orders Results/Orders: 04/03/20 13:00 EKG STAT shows a ventricular paced rate 79 bpm. Difficult to interpret otherwise. Chest x-ray shows some possibly peripheral infiltrates however this is most likely fluid overload in this patient. Laboratory Results - last 24 hr 04/03/20 04/03/20 04/03/20 13:15 13:22 13:22 WBC 4.5 L RBC 3.86 L Hgb 12.1 L Hct 35.7 L MCV 92.6 MCH 31.3 H MCHC 33.8 RDW 16.3 H Plt Count 112 L MPV 10.3 Absolute Neuts (auto) 3.60 Absolute Lymphs (auto) 0.50 L Absolute Monos (auto) 0.30 Absolute Eos (auto) 0.00 Absolute Basos (auto) 0.00 Neutrophils % 80.3 H Lymphocytes % 10.4 L Monocytes % 7.6 Eosinophils % 0.8 L Basophils % 0.9 Sodium 136 Potassium 4.0 Chloride 98 L Carbon Dioxide 24 Anion Gap 18.0 BUN 52 H Creatinine 2.81 H BUN/Creatinine Ratio 18.5 Random Glucose 110 H Serum Osmolality 286.6 Calcium 8.9 Magnesium 1.7 L Total Bilirubin 1.6 H AST 18 ALT 14 Alkaline Phosphatase 75 Creatine Kinase 38 CK-MB (CK-2) 1.4 CK-MB (CK-2) % Not Reportable Troponin I 0.04 B-Natriuretic Peptide > 5000.0 H* Serum Total Protein 7.2 Albumin 3.6 Globulin 3.6 H Albumin/Globulin Ratio 1.0 L Urine Color Yellow Urine Appearance Clear Urine pH 5.5 Ur Specific Newman 1.015 Urine Protein Negative Urine Glucose (UA) Negative Urine Ketones Negative Urine Blood Negative Urine Nitrite Negative Urine Bilirubin Negative Urine Urobilinogen 0.2 Ur Leukocyte Esterase Negative Urine RBC 0 Urine WBC 0 Ur Epithelial Cells 0 Urine Bacteria 0 Rapid coronavirus test is negative. - EKG/XRAY/CT CT Ordered: No CT Interpretation Call Back: No Departure - Departure Clinical Impression: Acute exacerbation of congestive heart failure Qualifiers: Heart failure type: combined systolic and diastolic Qualified Code(s): I50.43 - Acute on chronic combined systolic (congestive) and diastolic (congestive) heart failure Disposition: Discharge to Home or Self Care Condition: Fair Departure Forms: ED Discharge - Pt. Copy, Patient Portal Self Enrollment Instructions: DI for Chest Pain, Heart Failure, Adult (DC) Diet: low salt diet Activity: increase activity as tolerated Referrals: Stuart Gooden III, MD [Primary Care Provider] - 1-2 Weeks Home Medications: Ambulatory Orders Carvedilol 12.5 mg PO BID 05/16/14 Cyanocobalamin [B-12] 1,000 mcg PO DAILY 05/16/14 Donepezil HCl [Aricept] 10 mg PO DAILY 05/16/14 Irbesartan [Avapro] 75 mg PO BID 05/16/14 Metformin HCl [Metformin Hydrochloride] 500 mg PO BID 05/16/14 Multiple Vitamins W/ Minerals [Centrum Silver] 1 tab PO DAILY 05/16/14 Pravastatin Sodium 40 mg PO DAILY 05/16/14 Spironolactone 25 mg PO DAILY 05/16/14 Oxybutynin Chloride 5 mg PO BID 12/26/14 Pantoprazole Tablet [Protonix] 40 mg PO ACBK #30 tab 06/29/17 Amiodarone HCl 200 mg PO DAILY 07/01/18 Apixaban [Eliquis] 5 mg PO DAILY 07/01/18 Furosemide [Lasix] 20 mg PO DAILY 07/01/18 Losartan Potassium 100 mg PO DAILY 07/01/18 Tamsulosin [Flomax] 0.4 mg PO QD 07/01/18 Additional Instructions: The patient is a 79-year-old male presented to emergency room secondary to increased peripheral edema. The patient does have very advanced congestive heart failure. I want the patient to increase his Bumex to 2 mg twice daily for at least the next 3 days. He needs to be sure that he is getting metolazone as well along with the spironolactone. No evidence of any hypoxia or respiratory distress. He can continue to follow weights and do a fluid restriction for the next few days. No evidence of other acute pathology was found. Bedside bladder ultrasound by me shows no evidence of significant urinary retention. Laboratory work does not show any significant large deviation from his baseline. He tested negative for coronavirus here today. He is to continue home medications otherwise is normal. ER warnings are given. Follow-up with primary care doctor next week.
[2020-04-03 14:44] VITALS: BP 97/51; TEMP 97.5; O2SAT 96
== END 2020-04-03 14:28 | disposition home or self-care (01) ==
LOC: ER 12:30
DX: I50.43 Acute on chronic combined systolic (congestive) and diastolic (congestive) heart failure (principal); I11.0 Hypertensive heart disease with heart failure; E11.9 Type 2 diabetes mellitus without complications; Z20.828 Contact with and (suspected) exposure to other viral communicable diseases; Z95.0 Presence of cardiac pacemaker; Z87.891 Personal history of nicotine dependence; Z79.899 Other long term (current) drug therapy; Z79.84 Long term (current) use of oral hypoglycemic drugs; Z79.01 Long term (current) use of anticoagulants; Z91.041 Radiographic dye allergy status

== ENCOUNTER 2020-05-04 17:42 | Emergency (ER) | payer MEDICARE ==
--- NOTE | 2020-05-04 18:03 | ED.PDOC ---
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 - History of Present Illness Severity/Quality: mild Location: central Chest Pain Radiation: no radiation Activities at Onset: none Improving Factors: nothing Worsening Factors: nothing Allergies/Adverse Reactions: Allergies Iodine Allergy (Verified 04/03/20 12:55) IV dye Allergy (Uncoded 04/03/20 12:55) Home Medications: Ambulatory Orders Cyanocobalamin [B-12] 1,000 mcg PO DAILY 05/16/14 Donepezil HCl [Aricept] 10 mg PO DAILY 05/16/14 Multiple Vitamins W/ Minerals [Centrum Silver] 1 tab PO DAILY 05/16/14 Pravastatin Sodium 40 mg PO DAILY 05/16/14 Spironolactone 12.5 mg PO DAILY 05/16/14 Amiodarone HCl [Amiodarone Hydrochloride] 100 mg PO DAILY 07/01/18 Apixaban [Eliquis] 5 mg PO BID 07/01/18 Furosemide [Lasix] 20 mg PO BID 07/01/18 Tamsulosin [Flomax] 0.4 mg PO QD 07/01/18 Clopidogrel Bisulfate [Plavix] 75 mg PO QD 05/04/20 Magnesium Oxide [Mag-Ox Tab] 400 mg PO DAILY 05/04/20 Pantoprazole Tablet [Protonix] 40 mg PO DAILY 05/04/20 Sacubitril-Valsartan [Entresto 49-51 mg] 1 tab PO BID 05/04/20 Review of Systems - Review of Systems Constitutional: States: no symptoms reported EENTM: States: no symptoms reported Respiratory: States: no symptoms reported Cardiology: States: no symptoms reported Gastrointestinal/Abdominal: States: see HPI Genitourinary: States: no symptoms reported Musculoskeletal: States: no symptoms reported Skin: States: no symptoms reported Endocrine: States: no symptoms reported Hematologic/Lymphatic: States: no symptoms reported Past Medical History (General) - Patient Medical History Hx Seizures: No Hx Stroke: No Hx Dementia: No Hx Asthma: No Hx of COPD: No Hx Cardiac Disorders: Yes - Pacemaker Hx Congestive Heart Failure: No Hx Pacemaker: Yes Hx Hypertension: Yes Hx Thyroid Disease: No Hx Diabetes: Yes Hx Gastroesophageal Reflux: Yes - diverticulitis Hx Renal Disease: No Hx Cancer: No Hx of HIV: No Hx Hepatitis C: No Hx MRSA: No - Vaccination History Hx Tetanus, Diphtheria Vaccination: No Hx Influenza Vaccination: Yes Hx Pneumococcal Vaccination: Yes - Social History Hx Tobacco Use: Yes - has quit Hx Alcohol Use: No Hx Substance Use: No Hx Substance Use Treatment: No Hx Depression: No Hx Physical Abuse: No Hx Emotional Abuse: No Hx Suspected Abuse: No Family Medical History - Family History Mother Family History: No Known Living Status: Cause of : cancer Hx Family Hypertension: Yes Hx Cardiac Disease: Yes - [place] Hx Family Cancer: Yes - colon Physical Exam - Physical Exam General Appearance: Agitated, Well Developed, Well Groomed, Well Hydrated, Well Nourished Neck: non-tender, full range of motion, supple, normal inspection Respiratory: chest non-tender, lungs clear, rales Cardiovascular/Chest: normal peripheral pulses, regular rate, rhythm, no edema, no gallop Gastrointestinal/Abdominal: normal bowel sounds, non tender, soft Extremity: normal range of motion, non-tender, normal inspection Neurologic: alert, normal mood/affect, oriented x 3 Skin Exam: normal color, warm/dry Lymphatic: no adenopathy Departure - Departure Clinical Impression: Non-cardiac chest pain Congestive heart failure Qualifiers: Heart failure type: unspecified Heart failure chronicity: chronic Qualified Code(s): I50.9 - Heart failure, unspecified Time of Disposition: 19:51 Disposition: Discharge to Home or Self Care Condition: Fair Instructions: Heart Failure, Adult Referrals: Stuart Gooden III, MD [Primary Care Provider] - 1-2 Weeks Home Medications: Ambulatory Orders Cyanocobalamin [B-12] 1,000 mcg PO DAILY 05/16/14 Donepezil HCl [Aricept] 10 mg PO DAILY 05/16/14 Multiple Vitamins W/ Minerals [Centrum Silver] 1 tab PO DAILY 05/16/14 Pravastatin Sodium 40 mg PO DAILY 05/16/14 Spironolactone 12.5 mg PO DAILY 05/16/14 Amiodarone HCl [Amiodarone Hydrochloride] 100 mg PO DAILY 07/01/18 Apixaban [Eliquis] 5 mg PO BID 07/01/18 Furosemide [Lasix] 20 mg PO BID 07/01/18 Tamsulosin [Flomax] 0.4 mg PO QD 07/01/18 Clopidogrel Bisulfate [Plavix] 75 mg PO QD 05/04/20 Magnesium Oxide [Mag-Ox Tab] 400 mg PO DAILY 05/04/20 Pantoprazole Tablet [Protonix] 40 mg PO DAILY 05/04/20 Sacubitril-Valsartan [Entresto 49-51 mg] 1 tab PO BID 05/04/20 Additional Instructions: PLEASE CALL YOUR CARDIOLOGY OR PCP OFFICE IN THE MORNING TO ARRANGE FOLLOW UP ARA
[2020-05-04 19:15] VITALS: O2SAT 98
--- NOTE | 2020-05-04 19:46 | RAD ---
EXAM DESCRIPTION: Chest,2 Views CLINICAL HISTORY: 79 years Male, chest pain COMPARISON: 04/03/2020 TECHNIQUE: PA and lateral chest radiographs. FINDINGS: Cardiomegaly. Pulmonary vascular congestion. Hazy interstitial opacities. Patient is intact. No pneumothorax or pleural effusion. IMPRESSION: 1. Cardiomegaly with mild congestion changes/edema. Superimposed infection is not excluded. Electronically signed by: Lefty Rick MD 05/04/2020 7:44 PM [employer]
[2020-05-04 19:57] VITALS: BP 100/65; TEMP 97.9
== END 2020-05-04 20:12 | disposition home or self-care (01) ==
LOC: ER 17:42
DX: I50.9 Heart failure, unspecified (principal); R07.89 Other chest pain; I11.0 Hypertensive heart disease with heart failure; E11.9 Type 2 diabetes mellitus without complications; K21.9 Gastro-esophageal reflux disease without esophagitis; Z95.0 Presence of cardiac pacemaker; Z79.899 Other long term (current) drug therapy; Z79.02 Long term (current) use of antithrombotics/antiplatelets; Z79.01 Long term (current) use of anticoagulants; Z91.041 Radiographic dye allergy status

== ENCOUNTER 2020-05-07 01:40 | Emergency (ER) | payer MEDICARE ==
[2020-05-07 02:00] VITALS: O2SAT 96
[2020-05-07] MEDS ORDERED: KETOROLAC TROMETHAMINE INJ 30 MG/ML VIAL IM ONE (02:01)
--- NOTE | 2020-05-07 02:04 | ED.PDOC ---
History of Present Illness - General Chief Complaint: Back Pain or Injury Stated Complaint: back pain Time Seen by Provider: 05/07/20 01:44 - History of Present Illness Initial Comments: 79-year-old male positive past medical history nontender with PICC line in right upper extremity presents to ED complaining of back pain and musculoskeletal chest wall pain with respiration. Patient states earlier yesterday he fell backwards onto his back on the concrete while pulling a trash can of the street. Patient denies head/neck trauma or injury. He is only complaining of musculoskeletal pain is worsened with inspiration making it difficult for him to sleep. Denies alleviating/aggravating factors. Denies history of similar symptoms. Denies shortness of breath, nausea vomiting, fever chills, abdominal pain, headache. No other symptoms or complaints at this time. Allergies/Adverse Reactions: Allergies Iodine Allergy (Verified 04/03/20 12:55) IV dye Allergy (Uncoded 04/03/20 12:55) Home Medications: Ambulatory Orders Cyanocobalamin [B-12] 1,000 mcg PO DAILY 05/16/14 Donepezil HCl [Aricept] 10 mg PO DAILY 05/16/14 Multiple Vitamins W/ Minerals [Centrum Silver] 1 tab PO DAILY 05/16/14 Pravastatin Sodium 40 mg PO DAILY 05/16/14 Spironolactone 12.5 mg PO DAILY 05/16/14 Amiodarone HCl [Amiodarone Hydrochloride] 100 mg PO DAILY 07/01/18 Apixaban [Eliquis] 5 mg PO BID 07/01/18 Furosemide [Lasix] 20 mg PO BID 07/01/18 Tamsulosin [Flomax] 0.4 mg PO QD 07/01/18 Clopidogrel Bisulfate [Plavix] 75 mg PO QD 05/04/20 Magnesium Oxide [Mag-Ox Tab] 400 mg PO DAILY 05/04/20 Pantoprazole Tablet [Protonix] 40 mg PO DAILY 05/04/20 Sacubitril-Valsartan [Entresto 49-51 mg] 1 tab PO BID 05/04/20 Review of Systems - Review of Systems Constitutional: Denies: chills, fever Respiratory: Denies: cough, short of breath Cardiology: States: chest pain - musculoskeletal with back pain, non-cardiac Gastrointestinal/Abdominal: Denies: abdominal pain Musculoskeletal: States: back pain. Denies: neck pain Skin: Denies: change in color, rash Neurological: Denies: headache Hematologic/Lymphatic: States: easy bruising Past Medical History (General) - Patient Medical History Hx Seizures: No Hx Stroke: No Hx Dementia: No Hx Asthma: No Hx of COPD: No Hx Cardiac Disorders: Yes - Pacemaker Hx Congestive Heart Failure: No Hx Pacemaker: Yes Hx Hypertension: Yes Hx Thyroid Disease: No Hx Diabetes: Yes Hx Gastroesophageal Reflux: Yes - diverticulitis Hx Renal Disease: No Hx Cancer: No Hx of HIV: No Hx Hepatitis C: No Hx MRSA: No - Vaccination History Hx Tetanus, Diphtheria Vaccination: No Hx Influenza Vaccination: Yes Hx Pneumococcal Vaccination: Yes - Social History Hx Tobacco Use: Yes - has quit Hx Alcohol Use: No Hx Substance Use: No Hx Substance Use Treatment: No Hx Depression: No Hx Physical Abuse: No Hx Emotional Abuse: No Hx Suspected Abuse: No Family Medical History - Family History Mother Family History: No Known Living Status: Cause of : cancer Hx Family Hypertension: Yes Hx Cardiac Disease: Yes - [place] Hx Family Cancer: Yes - colon Physical Exam - Physical Exam General Appearance: Alert, Other - non-toxic, not ill appearing, ambulatory without any difficulty or guarding or assitance Neck Exam: non-tender, full range of motion, normal alignment, normal inspection Cardiovascular/Respiratory: regular rate, rhythm, no M/R/G, no JVD, normal breath sounds, no respiratory distress, other - No JVD Gastrointestinal/Abdominal: normal bowel sounds, non tender, soft Back Exam: no CVA tenderness, other - right latissamus and posterior chest wall TTP, no deformity, no crepitance, no flail chest, no paradoxical motion, no midline cervical/thoracic/lumbar TTP Extremity Exam: no evidence of injury Neurologic: alert, normal mood/affect, oriented x 3 Skin Exam: normal color, warm/dry Progress - Progress Progress: Fredy Gaviria DO Emergency Medicine Physician [id number] Appropriate PPE of surgical mask, gown, gloves, and eye protection (if encounter >5 minutes) utilized with every patient encounter; in accordance with [facility]. Presents for contusion and rib pain s/p fall. Low clinical concern for fracture or PTX. I will perform imaging, provide appropriate pharmacotherapy, and continue to monitor/reassess. Dispo will depend on imaging results and overall course in ED; however, discharge home is expected with f/u, education, and possible rx. 02:48 Rechecked pt. NAD, VSS, resting comfortably in bed and is feeling improved. I have discussed radiology results, lab results, my clinical impression, and diagnosis. I have also discussed plan for discharge home with f/u, education, prescription medications, and use of OTC Ibuprofen/Aleve as well as cryotherapy for pain control. ED return precautions provided. Pt voices understanding, agrees with plan, and all questions answered. - Results/Orders Results/Orders: EXAM DESCRIPTION: Thoracic Spine,AP Lateral 05/07/2020 2:42 AM HAND COKE DRAWER CLINICAL HISTORY: 79 years, Male, msk pain from fall COMPARISON: None. FINDINGS: Three X-ray views of the thoracic spine (frontal and lateral views) were performed. There is normal anatomic alignment of the thoracic vertebral bodies. There is minimal anterior spondylosis throughout the lumbar spine slightly more pronounced along the lower/midportion. The adjacent soft tissues are unremarkable. There is no evidence for fracture or subluxation. Neural foramina and pedicles demonstrate to be within normal limits. IMPRESSION: NO EVIDENCE FOR FRACTURE OR SUBLUXATION THORACIC SPINE. Electronically signed by: Stuart Alanis MD 05/07/2020 2:43 AM HAND COKE DRAWER EXAM DESCRIPTION: Chest,1 View 05/07/2020 2:39 AM HAND COKE DRAWER CLINICAL HISTORY: 79 years, Male, msk pain from fall COMPARISON: 05/04/2020 FINDINGS: Single view of the chest was obtained portable. Prior films were compared. Again there is a multilead pacemaker in place. The heart is prominent. There is a right upper extremity PICC line in good position at the cavoatrial junction. Costophrenic angles are sharp. No areas of consolidation or masses are seen. Again there is a linear radiodense material within the right mid chest perihilar area similar to prior study perhaps corresponding to foreign body. The rest of the soft tissue and bony structures demonstrate to be unremarkable. IMPRESSION: RIGHT UPPER ACTIVITY PICC LINE IN PLACE. CARDIOMEGALY. MULTILEAD PACEMAKER IN PLACE. NO SIGNS OF DECOMPENSATION. Electronically signed by: Stuart Alanis MD 05/07/2020 2:42 AM HAND COKE DRAWER Vital Signs - 24 hr 01/23/21 01:56 Temperature 97.6 F Pulse Rate [ 72 Left Radial] Respiratory 16 Rate Blood Pressure 99/63 [Left Arm] O2 Sat by Pulse 96 Oximetry Departure - Departure Clinical Impression: Back contusion Qualifiers: Encounter type: initial encounter Laterality: right Qualified Code(s): S20.221A - Contusion of right back wall of thorax, initial encounter Fall Qualifiers: Encounter type: initial encounter Qualified Code(s): W19.XXXA - Unspecified fall, initial encounter Time of Disposition: 02:47 Disposition: Discharge to Home or Self Care Condition: Fair Departure Forms: ED Discharge - Pt. Copy, Patient Portal Self Enrollment Instructions: DI for Low Back Pain, Upper Back Pain (DC), Contusion (DC), Preventing Falls in the Older Adult Activity: increase activity as tolerated Referrals: Stuart Gooden III, MD [Primary Care Provider] - 05/09/20 Home Medications: Ambulatory Orders Cyanocobalamin [B-12] 1,000 mcg PO DAILY 05/16/14 Donepezil HCl [Aricept] 10 mg PO DAILY 05/16/14 Multiple Vitamins W/ Minerals [Centrum Silver] 1 tab PO DAILY 05/16/14 Pravastatin Sodium 40 mg PO DAILY 05/16/14 Spironolactone 12.5 mg PO DAILY 05/16/14 Amiodarone HCl [Amiodarone Hydrochloride] 100 mg PO DAILY 07/01/18 Apixaban [Eliquis] 5 mg PO BID 07/01/18 Furosemide [Lasix] 20 mg PO BID 07/01/18 Tamsulosin [Flomax] 0.4 mg PO QD 07/01/18 Clopidogrel Bisulfate [Plavix] 75 mg PO QD 05/04/20 Magnesium Oxide [Mag-Ox Tab] 400 mg PO DAILY 05/04/20 Pantoprazole Tablet [Protonix] 40 mg PO DAILY 05/04/20 Sacubitril-Valsartan [Entresto 49-51 mg] 1 tab PO BID 05/04/20
--- NOTE | 2020-05-07 02:43 | RAD ---
EXAM DESCRIPTION: Chest,1 View 05/07/2020 2:39 AM DOUGHNUT ICER CLINICAL HISTORY: 79 years, Male, msk pain from fall COMPARISON: 05/04/2020 FINDINGS: Single view of the chest was obtained portable. Prior films were compared. Again there is a multilead pacemaker in place. The heart is prominent. There is a right upper extremity PICC line in good position at the cavoatrial junction. Costophrenic angles are sharp. No areas of consolidation or masses are seen. Again there is a linear radiodense material within the right mid chest perihilar area similar to prior study perhaps corresponding to foreign body. The rest of the soft tissue and bony structures demonstrate to be unremarkable. IMPRESSION: RIGHT UPPER ACTIVITY PICC LINE IN PLACE. CARDIOMEGALY. MULTILEAD PACEMAKER IN PLACE. NO SIGNS OF DECOMPENSATION. Electronically signed by: Stuart Alanis MD 05/07/2020 2:42 AM DOUGHNUT ICER
--- NOTE | 2020-05-07 02:45 | RAD ---
EXAM DESCRIPTION: Thoracic Spine,AP Lateral 05/07/2020 2:42 AM OFFICE SUPPORT CLERK CLINICAL HISTORY: 79 years, Male, msk pain from fall COMPARISON: None. FINDINGS: Three X-ray views of the thoracic spine (frontal and lateral views) were performed. There is normal anatomic alignment of the thoracic vertebral bodies. There is minimal anterior spondylosis throughout the lumbar spine slightly more pronounced along the lower/midportion. The adjacent soft tissues are unremarkable. There is no evidence for fracture or subluxation. Neural foramina and pedicles demonstrate to be within normal limits. IMPRESSION: NO EVIDENCE FOR FRACTURE OR SUBLUXATION THORACIC SPINE. Electronically signed by: Stuart Alanis MD 05/07/2020 2:43 AM OFFICE SUPPORT CLERK
[2020-05-07 02:59] VITALS: BP 94/64; TEMP 97.1
== END 2020-05-07 02:59 | disposition home or self-care (01) ==
LOC: ER 01:40
DX: S20.221A Contusion of right back wall of thorax, initial encounter (principal); R07.89 Other chest pain; I51.7 Cardiomegaly; K21.9 Gastro-esophageal reflux disease without esophagitis; I10 Essential (primary) hypertension; E11.9 Type 2 diabetes mellitus without complications; Z95.0 Presence of cardiac pacemaker; Z79.02 Long term (current) use of antithrombotics/antiplatelets; Z79.899 Other long term (current) drug therapy; Z79.01 Long term (current) use of anticoagulants; Z91.041 Radiographic dye allergy status; W18.39XA Other fall on same level, initial encounter; Y93.89 Activity, other specified; Y92.9 Unspecified place or not applicable
CPT/HCPCS: 71045; 72070; J1885

== ENCOUNTER 2020-05-08 06:05 | Emergency (ER) | payer MEDICARE ==
[2020-05-08] MEDS ORDERED: SODIUM BICARBONATE SYRINGE 50 MEQ/50 ML SYG IV ONE (06:09)
[2020-05-08] MEDS ORDERED: EPINEPHrine INJ 0.1 MG/ML 10 ML SYG ONE (06:09)
[2020-05-08] MEDS ORDERED: SODIUM CHLORIDE 0.9% (FLUSH) 10 ML SYG IV PRN (06:25)
--- NOTE | 2020-05-08 06:38 | ED.PDOC ---
History of Present Illness - General Chief Complaint: Cardiac Respiratory Arrest Stated Complaint: cardiacc arrest Time Seen by Provider: 05/08/20 06:35 Source: EMS notes reviewed, family, EMS, old records Exam Limitations: clinical condition - History of Present Illness Initial Comments: 79 yo male with end stage heart failure came in cardiac arrest, intubated at scene. Patient had received 4 round of epinephrine and approximately 15 minutes of CPR prior to arrival. Per family patient was getting up in the morning, he was complaining of shortness of breath while on the couch and became unresponsive. Patient does have a defibrillator for his end stage heart failure. Per he was not complaining of chest pain. Timing/Duration: 1/2 hour Allergies/Adverse Reactions: Allergies Iodine Allergy (Verified 04/03/20 12:55) IV dye Allergy (Uncoded 04/03/20 12:55) Home Medications: Ambulatory Orders Cyanocobalamin [B-12] 1,000 mcg PO DAILY 05/16/14 Donepezil HCl [Aricept] 10 mg PO DAILY 05/16/14 Multiple Vitamins W/ Minerals [Centrum Silver] 1 tab PO DAILY 05/16/14 Pravastatin Sodium 40 mg PO DAILY 05/16/14 Spironolactone 12.5 mg PO DAILY 05/16/14 Amiodarone HCl [Amiodarone Hydrochloride] 100 mg PO DAILY 07/01/18 Apixaban [Eliquis] 5 mg PO BID 07/01/18 Furosemide [Lasix] 20 mg PO BID 07/01/18 Tamsulosin [Flomax] 0.4 mg PO QD 07/01/18 Clopidogrel Bisulfate [Plavix] 75 mg PO QD 05/04/20 Magnesium Oxide [Mag-Ox Tab] 400 mg PO DAILY 05/04/20 Pantoprazole Tablet [Protonix] 40 mg PO DAILY 05/04/20 Sacubitril-Valsartan [Entresto 49-51 mg] 1 tab PO BID 05/04/20 Review of Systems - Review of Systems Unable to Obtain Due To: clinical condition Past Medical History (General) - Patient Medical History Hx Seizures: No Hx Stroke: No Hx Dementia: No Hx Asthma: No Hx of COPD: No Hx Cardiac Disorders: Yes - Pacemaker Hx Congestive Heart Failure: No Hx Pacemaker: Yes Hx Hypertension: Yes Hx Thyroid Disease: No Hx Diabetes: Yes Hx Gastroesophageal Reflux: Yes - diverticulitis Hx Renal Disease: No Hx Cancer: No Hx of HIV: No Hx Hepatitis C: No Hx MRSA: No - Vaccination History Hx Tetanus, Diphtheria Vaccination: No Hx Influenza Vaccination: Yes Hx Pneumococcal Vaccination: Yes - Social History Hx Tobacco Use: Yes - has quit Hx Alcohol Use: No Hx Substance Use: No Hx Substance Use Treatment: No Hx Depression: No Hx Physical Abuse: No Hx Emotional Abuse: No Hx Suspected Abuse: No Family Medical History - Family History Mother Family History: No Known Living Status: Cause of : cancer Hx Family Hypertension: Yes Hx Cardiac Disease: Yes - [place] Hx Family Cancer: Yes - colon Physical Exam - Physical Exam General Appearance: Other - unresponsive GCS 3T Eyes, Ears, Nose, Throat Exam: other - pupils pinpoint and fixed, no reactive Neck: supple Respiratory: other - symmetric chest rise. Cardiovascular/Chest: other - no pulses Peripheral Pulses: radial,right: 0, radial,left: 0, femoral,right: 0, femoral,left: 0 Gastrointestinal/Abdominal: soft Extremity: normal inspection Skin Exam: warm/dry Progress - Progress Progress: 05/08/20 06:39 Patient was brought in intubated, CPR machine. He had received 4 round of epinephrine. end tital CO2 showed readings 10-20 indicated good CPR. He was placed on the monitor, in addition the IO and additional IV was placed. Efforts continued for an additional 23 minutes. Patient had a total of 7 round of epinephrine round round of bicarb. PEA was noted on the monitor. We reviewed H&Ts. Bedside ultrasound showed no cardiac activity. Time of 628AM. Family was at bedside. 05/08/20 06:44 Departure - Departure Clinical Impression: Cardiac arrest Time of Disposition: 06:28 Disposition: Condition: Fair Departure Forms: ED Discharge - Pt. Copy, Patient Portal Self Enrollment Home Medications: Ambulatory Orders Cyanocobalamin [B-12] 1,000 mcg PO DAILY 05/16/14 Donepezil HCl [Aricept] 10 mg PO DAILY 05/16/14 Multiple Vitamins W/ Minerals [Centrum Silver] 1 tab PO DAILY 05/16/14 Pravastatin Sodium 40 mg PO DAILY 05/16/14 Spironolactone 12.5 mg PO DAILY 05/16/14 Amiodarone HCl [Amiodarone Hydrochloride] 100 mg PO DAILY 07/01/18 Apixaban [Eliquis] 5 mg PO BID 07/01/18 Furosemide [Lasix] 20 mg PO BID 07/01/18 Tamsulosin [Flomax] 0.4 mg PO QD 07/01/18 Clopidogrel Bisulfate [Plavix] 75 mg PO QD 05/04/20 Magnesium Oxide [Mag-Ox Tab] 400 mg PO DAILY 05/04/20 Pantoprazole Tablet [Protonix] 40 mg PO DAILY 05/04/20 Sacubitril-Valsartan [Entresto 49-51 mg] 1 tab PO BID 05/04/20 Critical Care Note - Critical Care Note Total Time (mins): 25
[2020-05-08 06:45] VITALS: BP 0/0; TEMP 96; O2SAT 72
== END 2020-05-08 06:28 | disposition expired ==
LOC: ER 06:05
DX: I46.9 Cardiac arrest, cause unspecified (principal); I50.84 End stage heart failure; I11.0 Hypertensive heart disease with heart failure; E11.9 Type 2 diabetes mellitus without complications; Z95.810 Presence of automatic (implantable) cardiac defibrillator; Z87.891 Personal history of nicotine dependence; Z79.899 Other long term (current) drug therapy; Z79.01 Long term (current) use of anticoagulants; Z91.041 Radiographic dye allergy status